=== PATIENT | female | born 1970 | race Caucasian/White ===

== ENCOUNTER 2018-05-13 10:19 | Emergency (ER) | payer MEDICARE ==
--- NOTE | 2018-05-13 11:30 | ER Document Report ---
ED Medical Screen (RME) - General Chief Complaint: Drug Abuse Stated Complaint: WEAKNESS Time Seen by Provider: 05/13/18 11:26 Notes: 47-year-old female presents to the ER complaining of drug use, weakness and feelings of dehydration. Patient stated she has been on a crack cocaine binge and has not slept in days. States she is smoking and doing drugs. States she feels dehydrated she feels weak. She denies any suicidal or homicidal thoughts however she does "not feel" she states she is out of her Seroquel. The patient stated she has tried to drink water but just states it is not helping. Presents here for further evaluation and treatment denies chest pain denies shortness of breath denies abdominal pain denies nausea vomiting diarrhea. TRAVEL OUTSIDE OF THE [place] IN LAST 30 DAYS: No - Related Data Allergies/Adverse Reactions: Sulfa (Sulfonamide Antibiotics) Allergy (Verified 06/08/12 18:17) Past Medical History Pulmonary Medical History: Reports: Hx Asthma - child, Hx Bronchitis Musculoskeltal Medical History: Reports Hx Arthritis - not dx Psychiatric Medical History: Reports: Hx Depression Past Surgical History: Reports: Hx Orthopedic Surgery - orthoscopic on right knee x2 - Immunizations Hx Diphtheria, Pertussis, Tetanus Vaccination: Yes Physical Exam - Vital signs Vitals: Temp Pulse Resp BP Pulse Ox 98.2 F 81 18 143/97 H 98 05/13/18 10:25 05/13/18 10:25 05/13/18 10:25 05/13/18 10:25 05/13/18 10:25 - General General appearance: Appears well, Alert In distress: None - Respiratory Respiratory status: No respiratory distress Breath sounds: Normal - Psychological Associated symptoms: Anxious, Restlessness, Unable to sleep Course - Vital Signs Vital signs: Temp Pulse Resp BP Pulse Ox 98.2 F 81 18 143/97 H 98 05/13/18 10:25 05/13/18 10:25 05/13/18 10:25 05/13/18 10:25 05/13/18 10:25 Doctor's Discharge - Discharge Referrals: EZE HESS DO [Primary Care Provider] - Follow up as needed
[2018-05-13 12:25] LABS: ABSOLUTE BASOPHILS # (AUTO) 0.1 10^3/uL (0.0-0.2); ABSOLUTE EOSINOPHILS # (AUTO) 0.2 10^3/uL (0.0-0.6); ABSOLUTE LYMPHOCYTES (AUTO) 1.9 10^3/uL (0.5-4.7); ABSOLUTE MONOCYTES (AUTO) 0.5 10^3/uL (0.1-1.4); ABSOLUTE NEUT (AUTO) 4.7 10^3/uL (1.7-8.2); BASOPHILS % (AUTO) 0.9 % (0-2); EOSINOPHILS % (AUTO) 2.3 % (0-6); HEMATOCRIT 41.2 % (36.0-47.0); HEMOGLOBIN 13.6 g/dL (12.0-15.5); LYMPHOCYTES % (AUTO) 25.5 % (13-45); MEAN CORPUSCULAR HGB CONC 33.1 g/dL (32.0-36.0); MEAN CORPUSCULAR VOLUME 82 fl (80-97); MONOCYTES % (AUTO) 7.4 % (3-13); PLATELET COUNT 325 10^3/uL (150-450); RED BLOOD COUNT 5.05 10^6/uL (3.72-5.28); RED CELL DISTRIBUTION WIDTH 15.8 % (11.5-14.0); SEGMENTED NEUTROPHILS % (AUTO) 63.9 % (42-78); TOTAL CELLS COUNTED % (AUTO) 100 %; WHITE BLOOD COUNT 7.3 10^3/uL (4.0-10.5)
[2018-05-13 12:34] LABS: APPEARANCE,URINE SLIGHTLY-CLOUDY; BILIRUBIN,URINE NEGATIVE (NEGATIVE); COLOR,URINE YELLOW; GLUCOSE, URINE NEGATIVE (NEGATIVE); KETONES,URINE TRACE mg/dL (NEGATIVE); LEUKOCYTE ESTERASE,URINE NEGATIVE (NEGATIVE); NITRITE,URINE NEGATIVE (NEGATIVE); PROTEIN,URINE NEGATIVE (NEGATIVE); URINE SPECIFIC GRAVITY 1.027
--- NOTE | 2018-05-13 12:44 | ER Document Report ---
ED Substance Abuse / Acc. OD - General Mode of Arrival: Ambulatory Information source: Patient TRAVEL OUTSIDE OF THE [place] IN LAST 30 DAYS: No <SABRINA FOSTER - Last Filed: 05/13/18 12:47> <WARNER JOHNSON - Last Filed: 05/13/18 15:13> <PANFILO SAHNI - Last Filed: 05/13/18 16:07> - General Chief Complaint: Drug Abuse Stated Complaint: WEAKNESS Time Seen by Provider: 05/13/18 11:26 Notes: 47-year-old female who presents to the emergency department today with complaints of "being dehydrated" after an 11 day crack cocaine binge. Patient states she has not slept in 11 days. Patient states she has no job and she is on Social Security for disability. Patient states her disability is bipolar, depression, and 2 knee surgeries. Patient mentions she thinks she has blisters on her feet bilaterally which are subjective. (SABRINA FOSTER) - Related Data Allergies/Adverse Reactions: Sulfa (Sulfonamide Antibiotics) Allergy (Verified 06/08/12 18:17) Past Medical History - General Information source: Patient - Social History Smoking Status: Current Every Day Smoker Cigarette use (# per day): Yes Frequency of alcohol use: Occasional Drug Abuse: Cocaine Lives with: Family Family History: Reviewed & Not Pertinent Patient has suicidal ideation: No Patient has homicidal ideation: No Pulmonary Medical History: Reports: Hx Asthma - child, Hx Bronchitis Musculoskeletal Medical History: Reports Hx Arthritis - not dx Psychiatric Medical History: Reports: Hx Depression Past Surgical History: Reports: Hx Orthopedic Surgery - orthoscopic on right knee x2 - Immunizations Hx Diphtheria, Pertussis, Tetanus Vaccination: Yes Hx Pneumococcal Vaccination: 10/01/00 <SABRINA FOSTER - Last Filed: 05/13/18 12:47> Review of Systems - Review of Systems Constitutional: See HPI, Other - Chronic cocaine binge, no sleep EENT: No symptoms reported Cardiovascular: No symptoms reported Respiratory: No symptoms reported Gastrointestinal: No symptoms reported Genitourinary: No symptoms reported Female Genitourinary: No symptoms reported Musculoskeletal: No symptoms reported Skin: See HPI, Lesions - subjective blisters on soles of feet bilaterally Hematologic/Lymphatic: No symptoms reported Neurological/Psychological: No symptoms reported -: Yes All other systems reviewed and negative <SABRINA FOSTER - Last Filed: 05/13/18 12:47> Physical Exam <SABRINA FOSTER - Last Filed: 05/13/18 12:47> <WARNER JOHNSON - Last Filed: 05/13/18 15:13> <PANFILO SAHNI - Last Filed: 05/13/18 16:07> - Vital signs Vitals: Temp Pulse Resp BP Pulse Ox 98.2 F 81 18 143/97 H 98 05/13/18 10:25 05/13/18 10:25 05/13/18 10:25 05/13/18 10:25 05/13/18 10:25 - Notes Notes: Physical Exam: General: Alert, snoring and sleeping comfortably but easily aroused. HEENT: Normocephalic. Atraumatic. PERRL. Extraocular movements intact. Oropharynx clear. Neck: Supple. Non-tender. Respiratory: No respiratory distress. Clear and equal breath sounds bilaterally. Cardiovascular: Regular rate and rhythm. Abdominal: Normal Inspection. Non-tender. No distension. Normal Bowel Sounds. Back: Non-tender. No deformity or step off. Extremities: Moves all four extremities. Upper extremities: Normal inspection. Normal ROM. Lower extremities: Normal inspection. No edema. Normal ROM. Neurological: Normal cognition. AAOx4. Normal speech. Psychological: Unable . Skin: Warm. Dry. Normal color. Complains of blisters on the bottom of her feet which are not appreciated. (SABRINA FOSTER) Course - Laboratory Result Diagrams: 05/13/18 11:58 05/13/18 11:58 <SABRINA FOSTER - Last Filed: 05/13/18 12:47> - Laboratory Result Diagrams: 05/13/18 11:58 05/13/18 11:58 <WARNER JOHNSON - Last Filed: 05/13/18 15:13> - Laboratory Result Diagrams: 05/13/18 11:58 05/13/18 11:58 <PANFILO SAHNI - Last Filed: 05/13/18 16:07> - Vital Signs Vital signs: Temp Pulse Resp BP Pulse Ox 98.2 F 81 18 143/97 H 98 05/13/18 10:25 05/13/18 10:25 05/13/18 10:25 05/13/18 10:25 05/13/18 10:25 - Laboratory Laboratory results interpreted by me: 05/13/18 05/13/18 05/13/18 11:58 11:58 11:58 RDW 15.8 H Potassium 3.2 L Urine Ketones TRACE H Urine Urobilinogen 4.0 H Urine Ascorbic Acid 20 H Salicylates < 1.0 L Acetaminophen < 10 L Discharge <LEYDI FOSTERON - Last Filed: 05/13/18 12:47> <WARNER JOHNSON - Last Filed: 05/13/18 15:13> <PANFILO SAHNI - Last Filed: 05/13/18 16:07> - Discharge Clinical Impression: Cocaine abuse Bipolar disorder Qualifiers: Active/Remission status: remission status unspecified Qualified Code(s): F31.9 - Bipolar disorder, unspecified Condition: Stable Disposition: HOME, SELF-CARE Additional Instructions: You have been evaluated by medical and behavioral health teams and have been deemed appropriate for discharge. Is recommended you obtain substance abuse treatment. Is recommended upon discharge to contact [facility] upon discharge for continued assistance in seeking detox. Cocaine Abuse Cocaine causes many dangerous medical problems. Problems can occur even with "usual" amounts. Cocaine affects judgement, creating a sense of invulnerability. Cocaine users often make bad decisions that seem "great" at the time. Most cocaine users eventually will be hurt by bad job performance, damaged personal relations, crime, and unsafe sexual practices. Toxic effects of cocaine can include seizures, hallucinations, delusions, high blood pressure, heart damage, or sudden . There's always the risk of a "bad batch." But heart attacks, brain hemorrhages, or cardiac arrest can occur unpredictably even with "normal" use. Injection of cocaine is risky for abscesses, endocarditis (heart infection) , pneumonia, and AIDS. Withdrawal from cocaine often causes anxiety and drug cravings. Some users become paranoid and psychotic. Many treatment programs are available, but you must make the decision to quit. Medication can be prescribed to control the symptoms of cocaine toxicity (beta blockers or benzodiazepines). Withdrawal symptoms may require tranquilizers. Scribe Attestation: 05/13/18 14:40 I personally performed the services described in the documentation, reviewed and edited the documentation which was dictated to the scribe in my presence, and it accurately records my words and actions. (PANFILO SAHNI) Scribe Documentation - Scribe Written by Scribe:: Dajuan Nickerson, 05/13/2018 1301 acting as scribe for :: James <SABRINA FOSTER - Last Filed: 05/13/18 12:47>
[2018-05-13 12:45] LABS: ALANINE AMINOTRANSFERASE 32 U/L (9-52); ALBUMIN 4.2 g/dL (3.5-5.0); ALKALINE PHOSPHATASE 69 U/L (38-126); ANION GAP 12 (5-19); ASPARTATE AMINO TRANSFERASE 29 U/L (14-36); BILIRUBIN,DIRECT 0.2 mg/dL (0.0-0.4); BILIRUBIN,TOTAL 0.4 mg/dL (0.2-1.3); BLOOD UREA NITROGEN 9 mg/dL (7-20); CALCIUM 9.4 mg/dL (8.4-10.2); CARBON DIOXIDE 27 mmol/L (22-30); CHLORIDE 105 mmol/L (98-107); GLUCOSE 76 mg/dL (75-110); POTASSIUM 3.2 mmol/L (3.6-5.0); SODIUM 144.4 mmol/L (137-145); TOTAL PROTEIN 7.4 g/dL (6.3-8.2)
[2018-05-13 12:50] LABS: ACETAMINOPHEN < 10 ug/mL (10-30); ALCOHOL < 10 mg/dL (NONE DETECTED); SALICYLATE < 1.0 mg/dL (2.0-20.0)
[2018-05-13 12:51] LABS: URINE AMPHETAMINES SCREEN NEGATIVE; URINE BARBITURATES SCREEN NEGATIVE; URINE BENZODIAZEPINES SCREEN NEGATIVE; URINE COCAINE SCREEN UNCONFIRMED POSITIVE; URINE MARIJUANA (THC) SCREEN NEGATIVE; URINE METHADONE SCREEN NEGATIVE; URINE PHENCYCLIDINE SCREEN NEGATIVE
--- NOTE | 2018-05-13 12:51 | EKG REPORT ---
SEVERITY:- ABNORMAL ECG - SINUS RHYTHM ABNRM R PROG, CONSIDER ASMI OR LEAD PLACEMENT : Confirmed by: Matt Sánchez MD 13-May-2018 12:50:14
[2018-05-13] MEDS: NORMAL SALINE 1000 ML 1,000 ML IV PRN ×2 (13:20→14:26)
[2018-05-13 16:21] VITALS: BP 127/88
--- NOTE | 2018-05-16 13:02 | PSYCHOLOGICAL NOTE ---
Psych Note - Psych Note Psych Note: Reason for Consult: substance abuse Consent permissions: none given Pt presented to the ED with complaints of using cocaine for 11 days straight. Pt reports feeling tired, weak, and dehydrated. Patient reports she has been hanging out with friends and doing too much crack. She denies thoughts of wanting to harm herself or others but discloses that she would be interested in detox. She reports that normally she only does crack every once in a while however she has been on a binge lately. Patient denies having any outpatient mental health services or any previous diagnosis. Behavior health team contacted [place] and [facility], there are no beds available. Patient is alert and orientated to person, place, time and circumstance. Mood is euthymic with congruent affect. Patient denies homicidal and suicidal ideation. Delusions are absent behaviors congruent with an intact reality based presentation i.e. organized and linear thought process. Eye contact is well-maintained. Conversational speech is within normal rate, tone and prosody. Intellectual abilities appear to be within average range. Attention and concentration are fair. Insight, judgment, impulse control are fair. 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 Patient does not meet IVC criteria per [place] GS 120 2C. Patient is requesting assistance for detox. Currently there are no beds available however patient will have soft [facility] off to [facility] for continued assistance in substance abuse treatment. Dr. Herzog was consulted and the care management this patient; attending physician is agreement with recommendations and disposition.
== END 2018-05-13 16:55 | disposition home or self-care (01) ==
LOC: ER 10:19
DX: F14.10 Cocaine abuse, uncomplicated (principal); F31.9 Bipolar disorder, unspecified; F17.210 Nicotine dependence, cigarettes, uncomplicated; Z88.2 Allergy status to sulfonamides; Z98.890 Other specified postprocedural states
CPT/HCPCS: 93005; 99285; 96360; 96361; 36415; 80307 ×4; 84703; 85025; 80053; 81001; 93010; J7030

== ENCOUNTER 2019-02-15 22:13 | Emergency (ER) | payer MEDICARE ==
[2019-02-15] MEDS ORDERED: IBUPROFEN 800 MG TABLET PO ONE (23:12)
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
--- NOTE | 2019-02-15 23:45 | RADIOLOGY REPORT (SQ) ---
EXAM DESCRIPTION: XR HAND 3 VIEWS BILATERAL COMPLETED DATE/TME: 02/15/2019 23:06 CLINICAL HISTORY: 48 years, Female, INJURY COMPARISON: None. NUMBER OF VIEWS: 6 TECHNIQUE: 3 views of each hand LIMITATIONS: None. FINDINGS: Right hand: Negative for acute fracture or dislocation. Mild soft tissue swelling along the ulnar aspect of the hand. No soft tissue gas. Joint spaces are preserved. Left hand: Negative for acute fracture or dislocation. Soft tissues are unremarkable. Joint spaces are preserved IMPRESSION: No acute osseous abnormality of either hand. copyright 2010 [employer]- All Rights Reserved
--- NOTE | 2019-02-15 23:53 | RADIOLOGY REPORT (SQ) ---
EXAM DESCRIPTION: XR FOOT 3 OR MORE VIEWS COMPLETED DATE/TME: 02/15/2019 23:06 CLINICAL HISTORY: INJURY COMPARISON: None FINDINGS: Three x-ray views of the right foot were submitted. There is no acute fracture or dislocation. Bone mineralization is within normal limits. There is no radiopaque foreign body material. IMPRESSION: No acute fracture or dislocation.
--- NOTE | 2019-02-16 00:12 | RADIOLOGY REPORT (SQ) ---
EXAM: X-ray lumbar spine five views CLINICAL DATA: 48-year-old female slammed in door. TECHNICAL DATA: Five x-ray views of the lumbar spine were performed including an AP, lateral, obliques and coned lateral view of the lumbosacral junction. The study was performed on 02/15/2019 at 11:40 PM. Comparison: None. FINDINGS: There are five lumbar vertebrae. The lumbar vertebrae are normal in height and alignment. There is mild disc space narrowing at L5-S1. There is no evidence of acute fracture or subluxation. Bone mineralization is within normal limits. No focal lytic or sclerotic bone lesions are identified. There is minimal degenerative spurring throughout the lumbar spine. The pedicles are intact bilaterally and appear symmetric. The facet joints are unremarkable. There are mild sclerotic changes of the sacroiliac joints. There are multiple surgical clips scattered throughout the abdomen. IMPRESSION: 1. No evidence of acute osseous injury. 2. Minimal degenerative changes throughout the lumbar spine. 3. Postsurgical changes within the abdomen.
[2019-02-16 00:19] LABS: APPEARANCE,URINE CLOUDY; BILIRUBIN,URINE NEGATIVE (NEGATIVE); COLOR,URINE YELLOW; GLUCOSE, URINE NEGATIVE (NEGATIVE); KETONES,URINE NEGATIVE (NEGATIVE); LEUKOCYTE ESTERASE,URINE TRACE (NEGATIVE); NITRITE,URINE NEGATIVE (NEGATIVE); PROTEIN,URINE NEGATIVE (NEGATIVE); URINE SPECIFIC GRAVITY 1.009; UROBILINOGEN,URINE NEGATIVE mg/dL (<2.0)
--- NOTE | 2019-02-16 00:29 | RADIOLOGY REPORT (SQ) ---
EXAM DESCRIPTION: XR WRIST 3 OR MORE VIEWS COMPLETED DATE/TME: 02/15/2019 23:06 CLINICAL HISTORY: 48 years ,Female slammed hand in door, pain COMPARISON: None. TECHNIQUE: LEFT wrist, Three view FINDINGS: No acute fractures or dislocations are identified. No osseous destructive lesions. IMPRESSION: No acute fractures are identified. If symptoms persist, followup is recommended in 7-10 days.
[2019-02-16 01:16] VITALS: BP 131/84
== END 2019-02-16 01:16 | disposition home or self-care (01) ==
LOC: ER 22:13
DX: S60.212A Contusion of left wrist, initial encounter (principal); S90.111A Contusion of right great toe without damage to nail, initial encounter; S90.121A Contusion of right lesser toe(s) without damage to nail, initial encounter; S69.91XA Unspecified injury of right wrist, hand and finger(s), initial encounter; S69.92XA Unspecified injury of left wrist, hand and finger(s), initial encounter; S39.92XA Unspecified injury of lower back, initial encounter; Y08.89XA Assault by other specified means, initial encounter; F14.10 Cocaine abuse, uncomplicated; F17.200 Nicotine dependence, unspecified, uncomplicated; Z88.2 Allergy status to sulfonamides
CPT/HCPCS: 99284; 87086; 87088; 81001; 87186; 73630; 72110; 73110; 73130; A9270